=== PATIENT | female | born 1995 | race Caucasian/White ===

== ENCOUNTER 2017-12-10 12:27 | Inpatient (IN) | payer MEDICAID, OTHER ==
[2017-12-10] MEDS ORDERED: Lidocaine 1% 50 ML MDV INJECT PRN (13:56)
[2017-12-10] MEDS ORDERED: Tranexamic Acid 1,000 MG in Sodium Chloride 0.9% 100 ML IV PRN (13:56)
[2017-12-10] MEDS ORDERED: Butorphanol 1 MG/ML SDV IVPUSH PRN (13:56)
[2017-12-10] MEDS ORDERED: Nalbuphine 10 MG/1 ML Vial IVPUSH PRN (13:56)
[2017-12-10] MEDS ORDERED: Water For Irrigation,Sterile 1,000 ML Container IRR PRN (13:56)
[2017-12-10] MEDS ORDERED: Misoprostol 200 MCG Tab PO PRN (13:56)
[2017-12-10] MEDS ORDERED: Sodium Chloride 0.9% 10 ML Syringe FLUSH PRN (13:56)
[2017-12-10] MEDS ORDERED: Carboprost Tromethamine 250 MCG/1 ML Amp IM PRN (13:56)
[2017-12-10] MEDS ORDERED: Methylergonovine 0.2 MG/1 ML Amp IM PRN (13:56)
[2017-12-10] MEDS ORDERED: Ampicillin 2 GM in Sodium Chloride 0.9% 100 ML IV ONE (13:56)
[2017-12-10] MEDS ORDERED: Sodium Chloride 0.9% 2.5 ML Syringe FLUSH PRN (13:56)
[2017-12-10] MEDS ORDERED: Oxytocin/0.9 % Sodium Chloride 30 UNIT/500 ML BAG IV SCH (14:00)
[2017-12-10] MEDS: Lactated Ringers 1,000 ML IV SCH ×3 (14:25→21:32)
--- NOTE | 2017-12-10 16:05 | PCM.LDHP ---
L&D History of Present Illness - General Date of Service: 12/10/17 Admit Problem/Dx: Patient Status Order with Admit Dx/Problem 12/10/17 13:01 Patient Status [ADT] Routine 12/10/17 13:56 Patient Status [ADT] Routine Admission Diagnosis/Problem Admission Diagnosis/Problem Source of Information: Patient History Limitations: Reports: No Limitations - History of Present Illness Improves with: Reports: None Worsens with: Reports: None Associated Symptoms: Reports: N - Related Data Allergies/Adverse Reactions: Allergies Allergy/AdvReac Type Severity Reaction Status Date / Time No Known Allergies Allergy Verified 12/10/17 13:00 H&P Review of Systems - Review of Systems: Review Of Systems: See Below General: Reports: No Symptoms HEENT: Reports: No Symptoms Pulmonary: Reports: No Symptoms Cardiovascular: Reports: No Symptoms Gastrointestinal: Reports: No Symptoms Genitourinary: Reports: No Symptoms Musculoskeletal: Reports: No Symptoms Skin: Reports: No Symptoms Psychiatric: Reports: No Symptoms Neurological: Reports: No Symptoms Hematologic/Lymphatic: Reports: No Symptoms Immunologic: Reports: No Symptoms L&D Exam - Exam Exam: See Below - Vital Signs Weight: 83.915 kg - OB Specific Fundal Height In cm: 37 Contraction Intensity: Mild to Moderate Movement: Active Heart Tones: Present Presentation: Vertex - Riojas Score Riojas Score Cervix Position: Posterior Riojas Score Consistency: Medium Riojas Score Effacement: 51-70% Riojas Score Dilation: 1-2 cm Riojas Score 's Station: -3 Riojas Score Total: 4 - Exam General: Alert, Oriented HEENT: PERRLA, Conjunctiva Clear, EACs Clear, EOMI, Hearing Intact, Mucosa Moist & [place], Nares Patent, Normal Nasal Septum, Posterior Pharynx Clear, TMs Clear Neck: Supple, Trachea Midline Lungs: Clear to Auscultation, Normal Respiratory Effort Cardiovascular: Regular Rate, Regular Rhythm GI/Abdominal Exam: Normal Bowel Sounds, Soft, Non-Tender, No Organomegaly, No Distention, No Abnormal Bruit, No Mass, Pelvis Stable Rectal Exam: Normal Exam, Normal Rectal Tone Genitourinary: Normal external exam, Normal bimanual exam, Normal speculum exam Back Exam: Normal Inspection, Full Range of Motion Extremities: Normal Inspection, Normal Range of Motion, Non-Tender, No Pedal Edema, Normal Capillary Refill Skin: Warm, Dry, Intact Neurological: Cranial Nerves Intact, Reflexes Equal Bilateral Psychiatric: Alert, Normal Affect, Normal Mood - Patient Data Lab Results Last 24 hrs: Laboratory Results - last 24 hr 12/10/17 12/10/17 12/10/17 Range/Units 12:50 14:15 14:15 WBC 10.61 (4.0-11.0) K/uL RBC 4.39 (4.30-5.90) M/uL Hgb 11.8 L (12.0-16.0) g/dL Hct 34.4 L (36.0-46.0) % MCV 78.4 L (80.0-98.0) fL MCH 26.9 L (27.0-32.0) pg MCHC 34.3 (31.0-37.0) g/dL RDW Std Deviation 43.6 (28.0-62.0) fl RDW Coeff of Bria 15 (11.0-15.0) % Plt Count 159 (150-400) K/uL MPV 11.60 (7.40-12.00) fL Nucleated RBC % 0.0 /100WBC Nucleated RBCs # 0 K/uL Membrane Rupture POSITIVE Blood Type O NEGATIVE Antibody Screen NEGATIVE Result Diagrams: 12/10/17 14:15 Problem List Initiated/Reviewed/Updated: Yes Orders Last 24hrs: Active Orders 24 hr Category Date Time Status Patient Status [ADT] Routine ADT 12/10/17 13:56 Active Heart Tones [RC] CONTINUOUS Care 12/10/17 13:56 Active Non Stress Test [RC] PER UNIT ROUTINE Care 12/10/17 13:01 Active Non Stress Test [RC] PER UNIT ROUTINE Care 12/10/17 13:56 Active May Shower [RC] ASDIRECTED Care 12/10/17 13:56 Active Notify Provider [RC] PRN Care 12/10/17 13:56 Active Up ad Lesia [RC] ASDIRECTED Care 12/10/17 13:01 Active Up ad Lesia [RC] ASDIRECTED Care 12/10/17 13:56 Active Vaginal Exam [RC] Click to Edit Care 12/10/17 13:01 Active Vaginal Exam [RC] PRN Care 12/10/17 13:56 Active Vital Signs [RC] PER UNIT ROUTINE Care 12/10/17 13:01 Active Vital Signs [RC] PER UNIT ROUTINE Care 12/10/17 13:56 Active Ampicillin 1 gm Med 12/10/17 18:30 Active Sodium Chloride 0.9% [Normal Saline] 50 ml IV Q4H Butorphanol [Stadol] Med 12/10/17 13:56 Active 1 mg IVPUSH Q1H PRN Carboprost Tromethamine [Hemabate DS] Med 12/10/17 13:56 Active 250 mcg IM ASDIRECTED PRN Lactated Ringers [Ringers, Lactated] 1,000 ml Med 12/10/17 14:00 Active IV ASDIRECTED Lidocaine 1% [Xylocaine 1%] Med 12/10/17 13:56 Active 50 ml INJECT ONETIME PRN Methylergonovine [Methergine] Med 12/10/17 13:56 Active 0.2 mg IM ASDIRECTED PRN Nalbuphine [Nubain] Med 12/10/17 13:56 Active 10 mg IVPUSH Q1H PRN Oxytocin/0.9 % Sodium Chloride [Oxytocin 30 Unit/500 ML Med 12/10/17 14:00 Active -NS] 30 unit in 500 ml IV TITRATE Sodium Chloride 0.9% [Saline Flush] Med 12/10/17 13:56 Active 10 ml FLUSH ASDIRECTED PRN Sodium Chloride 0.9% [Saline Flush] Med 12/10/17 13:56 Active 2.5 ml FLUSH ASDIRECTED PRN Tranexamic Acid [Cyklokapron] 1,000 mg Med 12/10/17 13:56 Active Sodium Chloride 0.9% [Normal Saline] 100 ml IV ONETIME Water For Irrigation,Sterile [Sterile Water for Med 12/10/17 13:56 Active Irrigation] 1,000 ml IRR ASDIRECTED PRN miSOPROStol [Cytotec] Med 12/10/17 13:56 Active 200 mcg PO ONETIME PRN Scalp Electrode [WOMSER] Per Unit Routine Oth 12/10/17 13:56 Ordered Peripheral IV Insertion Adult [OM.PC] Routine Oth 12/10/17 13:56 Ordered Resuscitation Status Routine Resus Stat 12/10/17 13:01 Ordered Medication Orders Butorphanol Tartrate (Stadol) 1 mg IVPUSH Q1H PRN PRN Reason: Pain Carboprost Tromethamine (Hemabate Ds) 250 mcg IM ASDIRECTED PRN PRN Reason: Post Hemorrhage Tranexamic Acid 1,000 mg/ (Sodium Chloride) 110 mls @ 660 mls/hr IV ONETIME PRN PRN Reason: Bleeding Lactated Ringer's (Ringers, Lactated) 1,000 mls @ 150 mls/hr IV ASDIRECTED [facility] Last Admin: 12/10/17 14:25 Dose: 150 mls/hr Oxytocin/Sodium Chloride (Oxytocin 30 Unit/500 Ml-Ns) 30 unit in 500 mls @ 500 mls/hr IV TITRATE [facility] Ampicillin Sodium 1 gm/ Sodium (Chloride) 50 mls @ 100 mls/hr IV Q4H [facility] Lidocaine HCl (Xylocaine 1%) 50 ml INJECT ONETIME PRN PRN Reason: Laceration repair Methylergonovine Maleate (Methergine) 0.2 mg IM ASDIRECTED PRN PRN Reason: Post Hemorrhage Misoprostol (Cytotec) 200 mcg PO ONETIME PRN PRN Reason: Post Hemorrhage Nalbuphine HCl (Nubain) 10 mg IVPUSH Q1H PRN PRN Reason: Pain (severe 7-10) Sodium Chloride (Saline Flush) 10 ml FLUSH ASDIRECTED PRN PRN Reason: Keep Vein Open Sodium Chloride (Saline Flush) 2.5 ml FLUSH ASDIRECTED PRN PRN Reason: Keep Vein Open Sterile Water (Sterile Water For Irrigation) 1,000 ml IRR ASDIRECTED PRN PRN Reason: delivery Assessment/Plan Comment:: This patient according to have last menstrual cycle had EDC is January 04, 2018 no other than January 14, 2018 which is listed in her OB record which is based on a late ultrasound the patient have at that late second trimester she started her care late. Her fundal height consistent with the fact that the patient is 3637 weeks she have spontaneous rupture of the membrane that was confirmed. I am planning to admit her to the hospitalist start her on antibiotic since had 2 previous status is unknown do expectant management. Later on we may need to start the patient on Pitocin for augmentation. She can have epidural anesthesia: It is needed and appropriate. I discussed this case with Dr. Ortega with the head host/hostess electronic design engineer.
[2017-12-10] MEDS: Ampicillin 1 GM in Sodium Chloride 0.9% 50 ML IV SCH ×2 (18:16→22:21)
--- NOTE | 2017-12-10 21:28 | PCM.PREANE ---
Preanesthetic Assessment - Anesthesia/Transfusion/Family Hx Anesthesia History: No Prior Anesthesia Family History of Anesthesia Reaction: No - Review of Systems General: No Symptoms Pulmonary: No Symptoms Cardiovascular: No Symptoms Gastrointestinal: No Symptoms Neurological: No Symptoms Other: Reports: None (Denies any personal or family hx of bleeding or clotting problems) - Physical Assessment Height: 1.68 m Weight: 83.915 kg ASA Class: 2 Mental Status: Alert & Oriented x3 Airway Class: Mallampati = 2 Dentition: Reports: Normal Dentition ROM/Head Extension: Full - Lab Values: Laboratory Last Values WBC 10.61 K/uL (4.0-11.0) 12/10/17 14:15 RBC 4.39 M/uL (4.30-5.90) 12/10/17 14:15 Hgb 11.8 g/dL (12.0-16.0) L 12/10/17 14:15 Hct 34.4 % (36.0-46.0) L 12/10/17 14:15 MCV 78.4 fL (80.0-98.0) L 12/10/17 14:15 MCH 26.9 pg (27.0-32.0) L 12/10/17 14:15 MCHC 34.3 g/dL (31.0-37.0) 12/10/17 14:15 RDW Std Deviation 43.6 fl (28.0-62.0) 12/10/17 14:15 RDW Coeff of Bria 15 % (11.0-15.0) 12/10/17 14:15 Plt Count 159 K/uL (150-400) 12/10/17 14:15 MPV 11.60 fL (7.40-12.00) 12/10/17 14:15 Nucleated RBC % 0.0 /100WBC 12/10/17 14:15 Nucleated RBCs # 0 K/uL 12/10/17 14:15 Membrane Rupture POSITIVE 12/10/17 12:50 Blood Type O NEGATIVE 12/10/17 14:15 Antibody Screen NEGATIVE 12/10/17 14:15 - Allergies Allergies/Adverse Reactions: Allergies Allergy/AdvReac Type Severity Reaction Status Date / Time No Known Allergies Allergy Verified 12/10/17 13:00 - Acknowledgements Anesthesia Type Planned: Epidural Pt an Appropriate Candidate for the Planned Anesthesia: Yes Alternatives and Risks of Anesthesia Discussed w Pt/Guardian: Yes Pt/Guardian Understands and Agrees with Anesthesia Plan: Yes Additional Comments: States does not have any questions or concerns after reading anesthesia consent form and risks explained PreAnesthesia Questionnaire - Past Health History Medical/Surgical History: Denies 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: - CURRENT (IN HOUSE) MEDS Current Meds: Current Medications Butorphanol Tartrate (Stadol) 1 mg IVPUSH Q1H PRN PRN Reason: Pain Carboprost Tromethamine (Hemabate Ds) 250 mcg IM ASDIRECTED PRN PRN Reason: Post Hemorrhage Tranexamic Acid 1,000 mg/ (Sodium Chloride) 110 mls @ 660 mls/hr IV ONETIME PRN PRN Reason: Bleeding Lactated Ringer's (Ringers, Lactated) 1,000 mls @ 150 mls/hr IV ASDIRECTED [facility] Last Admin: 12/10/17 20:25 Dose: 150 mls/hr Oxytocin/Sodium Chloride (Oxytocin 30 Unit/500 Ml-Ns) 30 unit in 500 mls @ 500 mls/hr IV TITRATE [facility] Ampicillin Sodium 1 gm/ Sodium (Chloride) 50 mls @ 100 mls/hr IV Q4H [facility] Last Admin: 12/10/17 18:16 Dose: 100 mls/hr Lidocaine HCl (Xylocaine 1%) 50 ml INJECT ONETIME PRN PRN Reason: Laceration repair Methylergonovine Maleate (Methergine) 0.2 mg IM ASDIRECTED PRN PRN Reason: Post Hemorrhage Misoprostol (Cytotec) 200 mcg PO ONETIME PRN PRN Reason: Post Hemorrhage Nalbuphine HCl (Nubain) 10 mg IVPUSH Q1H PRN PRN Reason: Pain (severe 7-10) Sodium Chloride (Saline Flush) 10 ml FLUSH ASDIRECTED PRN PRN Reason: Keep Vein Open Sodium Chloride (Saline Flush) 2.5 ml FLUSH ASDIRECTED PRN PRN Reason: Keep Vein Open Sterile Water (Sterile Water For Irrigation) 1,000 ml IRR ASDIRECTED PRN PRN Reason: delivery Discontinued Medications Ampicillin Sodium 2 gm/ Sodium (Chloride) 100 mls @ 200 mls/hr IV ONETIME ONE Stop: 12/10/17 14:25 Last Admin: 12/10/17 14:28 Dose: 200 mls/hr Fentanyl/Bupivacaine HCl (Xeekptes-Ohzwa-Ng 2 Mcg/Ml-0.125%) Confirm Administered Dose 100 mls @ as directed [facility] Stop: 12/10/17 20:49
[2017-12-11] MEDS: Ampicillin 1 GM in Sodium Chloride 0.9% 50 ML IV SCH ×3 (02:12→10:52)
[2017-12-11] MEDS: Lactated Ringers 1,000 ML IV SCH (05:54)
[2017-12-11] MEDS ORDERED: Oxytocin/0.9 % Sodium Chloride 30 UNIT/500 ML BAG IV SCH (07:45)
[2017-12-11] MEDS ORDERED: Lanolin 100% Cream 7 GM Tube TOP PRN (09:34)
[2017-12-11] MEDS ORDERED: Acetaminophen 500 MG Tab PO PRN (09:34)
[2017-12-11] MEDS ORDERED: Bisacodyl 10 MG Supp RECTAL PRN (09:34)
[2017-12-11] MEDS ORDERED: Benzocaine/Menthol 20%-0.5% Spray 78 GM Cannister TOP PRN (09:34)
[2017-12-11] MEDS ORDERED: oxyCODONE 5 MG Tab PO PRN (09:34)
[2017-12-11] MEDS ORDERED: Ibuprofen 400 MG Tab PO PRN (09:34)
[2017-12-11] MEDS ORDERED: Docusate Sodium 100 MG Cap PO PRN (09:34)
[2017-12-11] MEDS ORDERED: Witch Hazel Medicated Pads 40/Jar TOP PRN (09:34)
--- NOTE | 2017-12-11 11:44 | OR ---
SURGEON: Riki Butler MD DATE OF PROCEDURE: 12/11/2017 Ms. Roberto is 36 plus 4 according to her last menstrual cycle. She is admitted to Labor and Delivery with a spontaneous rupture of the membrane and in early labor. At the time of admission, she was 3 cm vertex and she was -2. Her GBS status was unknown, so we started her on antibiotic according to the protocol. The patient contracted spontaneously. She progressed to 5, complete vertex, 0 station. Then, she had epidural anesthesia for labor analgesia. The patient continued to progress. At 4:30 this morning, she was complete-complete vertex, +1 station, and she started pushing. The patient was rather exhausted; however, she pushed in excess of two and half hours. I gave her some Pitocin to start augment her contraction and to help facilitate bring the baby down, but the patient was unable to push the baby out. She was consulted and I suggested a vacuum extraction for her. I explained the vacuum extraction for her in detail. The patient was consented for that, and at the time of me examining the patient get her ready for the vacuum extraction, she was complete-complete vertex, +2, with the head in LOUIS position. I applied the Kiwi vacuum without any problem, and with the patient pushing, I was able to rotate the head from LOUIS to OA and accomplished the vaginal delivery without any problem. The fetus cried immediately. scores reported to be 8 and 9. The placenta delivered spontaneous, complete, and intact without any problem. There was no vaginal or perineal tear and episiotomy was not needed for this delivery. Estimated blood loss was 350 mL. The heart rate was category I through the entire process of labor and there was no complication in the labor or the delivery. ADALID / MJ /[id number]
[2017-12-11] MEDS: Ibuprofen 800 MG Tab PO PRN (18:03)
[2017-12-11] MEDS: Acetaminophen 500 MG Tab PO PRN (22:35)
--- NOTE | 2017-12-12 08:55 | PCM48HPAN ---
Post Anesthesia Note - EVALUATION WITHIN 48HRS OF ANESTHETIC Vital Signs in Normal Range: Yes Patient Participated in Evaluation: Yes Respiratory Function Stable: Yes Airway Patent: Yes Cardiovascular Function Stable: Yes Hydration Status Stable: Yes Pain Control Satisfactory: Yes Nausea and Vomiting Control Satisfactory: Yes Mental Status Recovered: Yes Resp Rate: 18 - COMMENTS/OBSERVATIONS Free Text/Narrative:: Denies any complaints or headache
--- NOTE | 2017-12-12 09:45 | PCM.PNPP ---
- General Info Date of Service: 12/12/17 Functional Status: Reports: Pain Controlled - Review of Systems General: Reports: No Symptoms HEENT: Reports: No Symptoms Pulmonary: Reports: No Symptoms Cardiovascular: Reports: No Symptoms Gastrointestinal: Reports: No Symptoms Genitourinary: Reports: No Symptoms Musculoskeletal: Reports: No Symptoms Skin: Reports: No Symptoms Neurological: Reports: No Symptoms Psychiatric: Reports: No Symptoms - General Info Date of Service: 12/12/17 - Patient Data Vital Signs - Most Recent: Last Vital Signs Temp 36.3 C 12/12/17 07:30 Pulse 100 12/12/17 07:30 Resp 18 12/12/17 08:54 BP 117/68 12/12/17 07:30 Pulse Ox 97 12/12/17 07:30 Weight - Most Recent: 83.915 kg I&O - Last 24 Hours: Intake & Output 12/11/17 12/12/17 12/12/17 22:59 06:59 14:59 Intake Total 2 Balance 2 Lab Results - Last 24 Hours: Laboratory Results - last 24 hr 12/11/17 12/12/17 Range/Units 10:00 05:50 Hgb 8.7 L (12.0-16.0) g/dL Hct 25.9 L (36.0-46.0) % Screen NEGATIVE (NEGATIVE) RhIG Candidate? YES Rhogam Indicated YES, BABY RH POS H Med Orders - Current: Current Medications Acetaminophen (Tylenol Extra Strength) 500 mg PO Q4H PRN PRN Reason: Pain Acetaminophen (Tylenol Extra Strength) 1,000 mg PO Q4H PRN PRN Reason: Pain Last Admin: 12/11/17 22:35 Dose: 1,000 mg Benzocaine/Menthol (Dermoplast Pain Relief 20%-0.5% [place]) 78 gm TOP ASDIRECTED PRN PRN Reason: Perineal Comfort Measure Last Admin: 12/11/17 10:03 Dose: 1 canister Bisacodyl (Dulcolax) 10 mg RECTAL ONETIME PRN PRN Reason: Constipation Butorphanol Tartrate (Stadol) 1 mg IVPUSH Q1H PRN PRN Reason: Pain Carboprost Tromethamine (Hemabate Ds) 250 mcg IM ASDIRECTED PRN PRN Reason: Post Hemorrhage Docusate Sodium (Colace) 100 mg PO BID PRN PRN Reason: Constipation Emollient Ointment (Lansinoh Hpa) 0 gm TOP ASDIRECTED PRN PRN Reason: Sore Nipples Tranexamic Acid 1,000 mg/ (Sodium Chloride) 110 mls @ 660 mls/hr IV ONETIME PRN PRN Reason: Bleeding Lactated Ringer's (Ringers, Lactated) 1,000 mls @ 150 mls/hr IV ASDIRECTED [facility] Last Admin: 12/11/17 05:54 Dose: 150 mls/hr Oxytocin/Sodium Chloride (Oxytocin 30 Unit/500 Ml-Ns) 30 unit in 500 mls @ 500 mls/hr IV TITRATE [facility] Oxytocin/Sodium Chloride (Oxytocin 30 Unit/500 Ml-Ns) 30 unit in 500 mls @ 2 mls/hr IV TITRATE [facility]; Protocol Last Infusion: 12/11/17 08:57 Dose: 999 munits/min, 999 mls/hr Ibuprofen (Motrin) 400 mg PO Q4H PRN PRN Reason: Pain Ibuprofen (Motrin) 800 mg PO Q6H PRN PRN Reason: Pain Last Admin: 12/11/17 18:03 Dose: 800 mg Lidocaine HCl (Xylocaine 1%) 50 ml INJECT ONETIME PRN PRN Reason: Laceration repair Methylergonovine Maleate (Methergine) 0.2 mg IM ASDIRECTED PRN PRN Reason: Post Hemorrhage Misoprostol (Cytotec) 200 mcg PO ONETIME PRN PRN Reason: Post Hemorrhage Nalbuphine HCl (Nubain) 10 mg IVPUSH Q1H PRN PRN Reason: Pain (severe 7-10) Oxycodone HCl (Oxycodone) 5 mg PO Q2H PRN PRN Reason: Pain Sodium Chloride (Saline Flush) 10 ml FLUSH ASDIRECTED PRN PRN Reason: Keep Vein Open Sodium Chloride (Saline Flush) 2.5 ml FLUSH ASDIRECTED PRN PRN Reason: Keep Vein Open Sterile Water (Sterile Water For Irrigation) 1,000 ml IRR ASDIRECTED PRN PRN Reason: delivery Witch Judith (Tucks) 1 pad TOP ASDIRECTED PRN PRN Reason: comfort care Last Admin: 12/11/17 10:03 Dose: 1 tub Discontinued Medications Ampicillin Sodium 2 gm/ Sodium (Chloride) 100 mls @ 200 mls/hr IV ONETIME ONE Stop: 12/10/17 14:25 Last Admin: 12/10/17 14:28 Dose: 200 mls/hr Ampicillin Sodium 1 gm/ Sodium (Chloride) 50 mls @ 100 mls/hr IV Q4H [facility] Last Admin: 12/11/17 10:52 Dose: Not Given Fentanyl/Bupivacaine HCl (Kcyakzzo-Juumw-Xw 2 Mcg/Ml-0.125%) Confirm Administered Dose 100 mls @ as directed EP .STK-MED ONE Stop: 12/10/17 20:49 Last Admin: 12/11/17 00:53 Dose: Not Given Fentanyl/Bupivacaine HCl (Dynhslci-Mxgzc-Dr 2 Mcg/Ml-0.125%) Confirm Administered Dose 100 mls @ as directed EP .STK-MED ONE Stop: 12/11/17 07:54 - Interaction Infant Disposition, : in Room with Family Interaction: Holding Infant Support Person: Mother, Significant Other - Recovery Exam Fundal Tone: Firm Fundal Level: At Umbilicus Fundal Placement: Midline Lochia Amount: Scant Lochia Color: Rubra/Red Perineum Description: Intact, Minimal Bruising/Swelling, Edematous Episiotomy/Laceration: None Bladder Status: Voiding Urinary Elimination: Voided - Exam General: Alert, Oriented HEENT: Pupils Equal Neck: Supple Lungs: Clear to Auscultation, Normal Respiratory Effort Cardiovascular: Regular Rate, Regular Rhythm GI/Abdominal Exam: Normal Bowel Sounds, Soft, Non-Tender, No Organomegaly, No Distention, No Abnormal Bruit, No Mass, Pelvis Stable Extremities: Normal Inspection, Normal Range of Motion, Non-Tender, No Pedal Edema, Normal Capillary Refill Skin: Warm, Dry, Intact Wound/Incisions: Healing Well Neurological: No New Focal Deficit Psy/Mental Status: Alert, Normal Affect, Normal Mood - Problem List Review Problem List Initiated/Reviewed/Updated: Yes - My Orders Last 24 Hours: My Active Orders 12/11/17 09:34 Acetaminophen [Tylenol Extra Strength] 1,000 mg PO Q4H PRN Acetaminophen [Tylenol Extra Strength] 500 mg PO Q4H PRN Benzocaine/Menthol [Dermoplast Pain Relief 20%-0.5% [place]] 78 gm TOP ASDIRECTED PRN Bisacodyl [Dulcolax] 10 mg RECTAL ONETIME PRN Docusate Sodium [Colace] 100 mg PO BID PRN Ibuprofen [Motrin] 400 mg PO Q4H PRN Ibuprofen [Motrin] 800 mg PO Q6H PRN Lanolin [Lansinoh HPA] See Dose Instructions TOP ASDIRECTED PRN Wm Wong [Tucks] 1 pad TOP ASDIRECTED PRN oxyCODONE 5 mg PO Q2H PRN 12/11/17 09:35 Patient Status [ADT] Routine May Shower [RC] ASDIRECTED Up ad Lesia [RC] ASDIRECTED Vital Signs [RC] PER UNIT ROUTINE Assess Lochia [WOMSER] Per Unit Routine Assess Uterine Involution [WOMSER] Per Unit Routine Peripheral IV Discontinue [OM.PC] Routine 12/11/17 Lunch Regular Diet [DIET] - Plan Plan:: This patient according to have last menstrual cycle had EDC is January 04, 2018 no other than January 14, 2018 which is listed in her OB record which is based on a late ultrasound the patient have at that late second trimester she started her care late. Her fundal height consistent with the fact that the patient is 3637 weeks she have spontaneous rupture of the membrane that was confirmed. I am planning to admit her to the hospitalist start her on antibiotic since had 2 previous status is unknown do expectant management. Later on we may need to start the patient on Pitocin for augmentation. She can have epidural anesthesia: It is needed and appropriate. I discussed this case with Dr. Ortega with the furniture removalist's assistant blender conveyor operator.
[2017-12-12] MEDS: Ibuprofen 800 MG Tab PO PRN (13:28)
[2017-12-13] MEDS: Acetaminophen 500 MG Tab PO PRN (04:47)
== END 2017-12-13 11:00 | disposition home or self-care (01) | DRG 775 ==
LOC: MW.OBCHECK 12:27 → MW.OB 13:56 → OBSVTOIN 12-11 08:57 → MW.OB 12-11 11:00
PROVIDERS: ADMIT Obstetrics & Gynecology; ATTEND Obstetrics & Gynecology
PROC: 10D07Z6 Extraction of Products of Conception, Vacuum, Via Natural or Artificial Opening (ICD-10-PCS; principal; 2017-12-11)
PROC: 00HU33Z Insertion of Infusion Device into Spinal Canal, Percutaneous Approach (ICD-10-PCS; 2017-12-11)
PROC: 00HU33Z Insertion of Infusion Device into Spinal Canal, Percutaneous Approach (ICD-10-PCS; 2017-12-11)
DX: O42.013 Preterm premature rupture of membranes, onset of labor within 24 hours of rupture, third trimester (principal); Z3A.36 36 weeks gestation of pregnancy; Z37.0 Single live birth
CPT/HCPCS: 36415; 51702; 59025; 59409; 84112; 85014; 85018; 85027; 85460; 86850; 86900; 86901; A9270-GY; J0290; J2590; J2792; J7030; J7050; J7120

== ENCOUNTER 2018-09-03 15:52 | Emergency (ER) | payer SELFPAY ==
--- NOTE | 2018-09-03 15:55 | EDM.PDOC ---
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 She reports she had an IUD placed approximately 4-5 weeks ago in [place]. She reports since having the IUD placed she has had some intermittent vaginal bleeding, worse over the last few days. She is concerned that she is and is having a miscarriage. She has not taken any home tests. She was informed by her provider that she was not prior to the IUD being placed. She has some mild nausea without vomiting. Patient denies any fever, chills, headache, change in vision, syncope or near syncope. Denies any chest pain, back pain, shortness of breath or cough. Denies any diarrhea, constipation or dysuria. Has not noted any blood in urine or stool. Patient has been eating and drinking appropriately. Review of systems: As per history of present illness and below otherwise all systems reviewed and negative. Past medical history: As per history of present illness and as reviewed below otherwise noncontributory. Surgical history: As per history of present illness and as reviewed below otherwise noncontributory. Social history: See social history for further information Family history: As per history of present illness and as reviewed below otherwise noncontributory. Physical exam: General: Well-developed and well-nourished 23-year-old female. Alert and oriented. Nontoxic appearing and in no acute distress. HEENT: Atraumatic, normocephalic, pupils equal and reactive bilaterally, negative for conjunctival pallor or scleral icterus, mucous membranes moist, TMs normal bilaterally, throat clear, neck supple, nontender, trachea midline. No drooling or trismus noted. No meningeal signs. No hot potato voice noted. Lungs: Clear to auscultation, breath sounds equal bilaterally, chest nontender. Heart: S1S2, regular rate and rhythm without overt murmur Abdomen: Soft, nondistended, nontender. Negative for masses or hepatosplenomegaly. Negative for costovertebral tenderness. Pelvis: Stable nontender. Genitourinary: Deferred. Rectal: Deferred. Skin: Intact, warm, dry. No lesions or rashes noted. Extremities: Atraumatic, moves all extremities per self without difficulty or deficits, negative for cords or calf pain. Neurovascular unremarkable. Neuro: Awake, alert, oriented. Cranial nerves II through XII unremarkable. Cerebellum unremarkable. Motor and sensory unremarkable throughout. Exam nonfocal. Notes: Lab work is unremarkable. Her vital signs are stable and have been reviewed by me. Supportive care measures were reviewed and discussed. Voices understanding and is agreeable to plan of care. Denies any further questions or concerns at this time. Diagnostics: CBC, CMP, UA, HCGU Therapeutics: None Prescription: None Impression: Encounter for medical screening Irregular menses Plan: 1. Labs were normal today. You are not 2. Cycles may be irregular for the first several months. 3. Tylenol and or ibuprofen as needed for pain management. 4. Follow-up with your primary care provider or OBGYN as we discussed. Return to the ED as needed and as discussed. Definitive disposition and diagnosis as appropriate pending reevaluation and review of above. Pelvic Pain Score (Numeric/FACES): 8 - Related Data Allergies Allergy/AdvReac Type Severity Reaction Status Date / Time No Known Allergies Allergy Verified 09/03/18 16:21 Home Meds: Home Meds . 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 ED EXAM - Physical Exam Exam: See Below (See dictation) Course - Vital Signs Last Recorded V/S: Last Vital Signs Temp 97.6 F 09/03/18 16:18 Pulse 90 09/03/18 16:18 Resp 18 09/03/18 16:18 BP 116/79 09/03/18 16:18 Pulse Ox 97 09/03/18 16:18 - Orders/Labs/Meds Labs: Laboratory Tests 09/03/18 09/03/18 09/03/18 Range/Units 16:17 16:17 16:29 WBC 9.70 (4.0-11.0) K/uL RBC 5.30 (4.30-5.90) M/uL Hgb 12.4 (12.0-16.0) g/dL Hct 37.7 (36.0-46.0) % MCV 71.1 L (80.0-98.0) fL MCH 23.4 L (27.0-32.0) pg MCHC 32.9 (31.0-37.0) g/dL RDW Std Deviation 43.7 (28.0-62.0) fl RDW Coeff of Bria 17 H (11.0-15.0) % Plt Count 284 (150-400) K/uL MPV 10.60 (7.40-12.00) fL Neut % (Auto) 64.3 (48.0-80.0) % Lymph % (Auto) 28.2 (16.0-40.0) % Ellis % (Auto) 5.3 (0.0-15.0) % Eos % (Auto) 1.2 (0.0-7.0) % Baso % (Auto) 1.0 (0.0-1.5) % Neut # (Auto) 6.2 H (1.4-5.7) K/uL Lymph # (Auto) 2.7 H (0.6-2.4) K/uL Ellis # (Auto) 0.5 (0.0-0.8) K/uL Eos # (Auto) 0.1 (0.0-0.7) K/uL Baso # (Auto) 0.1 (0.0-0.1) K/uL Nucleated RBC % 0.0 /100WBC Nucleated RBCs # 0 K/uL Sodium (136-145) mmol/L Potassium (3.5-5.1) mmol/L Chloride (98-107) mmol/L Carbon Dioxide (21.0-32.0) mmol/L BUN (7.0-18.0) mg/dL Creatinine (0.6-1.0) mg/dL Est Cr Clr Drug Dosing mL/min Estimated GFR (MDRD) ml/min Glucose (74-106) mg/dL Calcium (8.5-10.1) mg/dL Urine Color YELLOW Urine Appearance CLEAR Urine pH 6.0 (5.0-8.0) Ur Specific Outlook >= 1.030 (1.001-1.035) Urine Protein NEGATIVE (NEGATIVE) mg/dL Urine Glucose (UA) NEGATIVE (NEGATIVE) mg/dL Urine Ketones NEGATIVE (NEGATIVE) mg/dL Urine Occult Blood SMALL H (NEGATIVE) Urine Nitrite NEGATIVE (NEGATIVE) Urine Bilirubin NEGATIVE (NEGATIVE) Urine Urobilinogen 0.2 (<2.0) EU/dL Ur Leukocyte Esterase NEGATIVE (NEGATIVE) Urine RBC 0-1 (0-2/HPF) Urine WBC 0-3 (0-5/HPF) Ur Epithelial Cells FEW (NONE-FEW) Urine Bacteria FEW (NEGATIVE) Urine HCG, Qual NEGATIVE (NEGATIVE) 09/03/18 Range/Units 16:29 WBC (4.0-11.0) K/uL RBC (4.30-5.90) M/uL Hgb (12.0-16.0) g/dL Hct (36.0-46.0) % MCV (80.0-98.0) fL MCH (27.0-32.0) pg MCHC (31.0-37.0) g/dL RDW Std Deviation (28.0-62.0) fl RDW Coeff of Bria (11.0-15.0) % Plt Count (150-400) K/uL MPV (7.40-12.00) fL Neut % (Auto) (48.0-80.0) % Lymph % (Auto) (16.0-40.0) % Ellis % (Auto) (0.0-15.0) % Eos % (Auto) (0.0-7.0) % Baso % (Auto) (0.0-1.5) % Neut # (Auto) (1.4-5.7) K/uL Lymph # (Auto) (0.6-2.4) K/uL Ellis # (Auto) (0.0-0.8) K/uL Eos # (Auto) (0.0-0.7) K/uL Baso # (Auto) (0.0-0.1) K/uL Nucleated RBC % /100WBC Nucleated RBCs # K/uL Sodium 135 L (136-145) mmol/L Potassium 4.2 (3.5-5.1) mmol/L Chloride 100 (98-107) mmol/L Carbon Dioxide 27.6 (21.0-32.0) mmol/L BUN 13 (7.0-18.0) mg/dL Creatinine 0.7 (0.6-1.0) mg/dL Est Cr Clr Drug Dosing 118.01 mL/min Estimated GFR (MDRD) > 60.0 ml/min Glucose 90 (74-106) mg/dL Calcium 8.9 (8.5-10.1) mg/dL Urine Color Urine Appearance Urine pH (5.0-8.0) Ur Specific Outlook (1.001-1.035) Urine Protein (NEGATIVE) mg/dL Urine Glucose (UA) (NEGATIVE) mg/dL Urine Ketones (NEGATIVE) mg/dL Urine Occult Blood (NEGATIVE) Urine Nitrite (NEGATIVE) Urine Bilirubin (NEGATIVE) Urine Urobilinogen (<2.0) EU/dL Ur Leukocyte Esterase (NEGATIVE) Urine RBC (0-2/HPF) Urine WBC (0-5/HPF) Ur Epithelial Cells (NONE-FEW) Urine Bacteria (NEGATIVE) Urine HCG, Qual (NEGATIVE) Departure - Departure Time of Disposition: 17:06 Disposition: Home, Self-Care 01 Clinical Impression: Irregular menses, Encounter for medical screening examination - Discharge Information Instructions: Metrorrhagia, [id number] Referrals: PCP,None [Primary Care Provider] - Forms: ED Department Discharge Additional Instructions: The following information is given to patients seen in the emergency department who are being discharged to home. This information is to outline your options for follow-up care. We provide all patients seen in our emergency department with a follow-up referral. The need for follow-up, as well as the timing and circumstances, are variable depending upon the specifics of your emergency department visit. If you don't have a primary care physician on staff, we will provide you with a referral. We always advise you to contact your personal physician following an emergency department visit to inform them of the circumstance of the visit and for follow-up with them and/or the need for any referrals to a consulting specialist. The emergency department will also refer you to a specialist when appropriate. This referral assures that you have the opportunity for follow-up care with a specialist. All of these measure are taken in an effort to provide you with optimal care, which includes your follow-up. Under all circumstances we always encourage you to contact your private physician who remains a resource for coordinating your care. When calling for follow-up care, please make the office aware that this follow-up is from your recent emergency room visit. If for any reason you are refused follow-up, please contact the [facility] Emergency Department at and asked to speak to the emergency department charge nurse. [facility] Primary Care [address] [place] [address] [facility] [address] [place] [id number] 1. Labs were normal today. You are not 2. Cycles may be irregular for the first several months. 3. Tylenol and or ibuprofen as needed for pain management. 4. Follow-up with your primary care provider or OBGYN as we discussed. Return to the ED as needed and as discussed.
[2018-09-03 17:02] LABS: CHLORIDE,CL 100 mmol/L (98-107); SODIUM,NA 135 mmol/L (136-145)
== END 2018-09-03 17:14 | disposition home or self-care (01) ==
LOC: MW.ED 15:52
DX: N92.6 Irregular menstruation, unspecified (principal)
CPT/HCPCS: 36415; 80048; 81001; 81025; 85025; 99284

== ENCOUNTER 2019-01-28 19:54 | Emergency (ER) | payer SELFPAY ==
[2019-01-28] MEDS ORDERED: cefTRIAXone 1 GM in Lidocaine 1% 4 ML IM ONE (22:21)
--- NOTE | 2019-01-28 22:24 | EDM.PDOC ---
ED HPI GENERAL MEDICAL PROBLEM - General Chief Complaint: Genitourinary Problem Stated Complaint: FEVER/FLU SYMPTOMS Time Seen by Provider: 01/28/19 20:52 - History of Present Illness INITIAL COMMENTS - FREE TEXT/NARRATIVE: HISTORY AND PHYSICAL: History of present illness: Patient 24-year-old female presents with concern of frequency and discomfort with urination over the last 24-48 hours patient denies nausea vomiting vaginal bleeding irregular discharge or other concern Review of systems: As per history of present illness and below otherwise all systems reviewed and negative. Past medical history: As per history of present illness and as reviewed below otherwise noncontributory. Surgical history: As per history of present illness and as reviewed below otherwise noncontributory. Social history: No reported history of drug or alcohol abuse. Family history: As per history of present illness and as reviewed below otherwise noncontributory. Physical exam: HEENT: Atraumatic, normocephalic, pupils reactive, negative for conjunctival pallor or scleral icterus, mucous membranes moist, throat clear, neck supple, nontender, trachea midline. Lungs: Clear to auscultation, breath sounds equal bilaterally, chest nontender. Heart: S1S2, regular, negative for clicks, rubs, or JVD. Abdomen: Soft, nondistended, nontender. Negative for masses or hepatosplenomegaly. Mild left-sided costovertebral tenderness. Pelvis: Stable nontender. Genitourinary: Deferred. Rectal: Deferred. Extremities: Atraumatic, negative for cords or calf pain. Neurovascular unremarkable. Neuro: Awake, alert, oriented. Cranial nerves II through XII unremarkable. Cerebellum unremarkable. Motor and sensory unremarkable throughout. Exam nonfocal. Diagnostics: UA UCG Therapeutics: Rocephin 1 g IM Impression: #1 urinary tract infection Definitive disposition and diagnosis as appropriate pending reevaluation and review of above. [] flank/urinary Pain Score (Numeric/FACES): 10 - Related Data Allergies Allergy/AdvReac Type Severity Reaction Status Date / Time No Known Allergies Allergy Verified 01/28/19 20:01 Home Meds: Home Meds . 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 ED EXAM, GENERAL - Physical Exam Exam: See Below (dictation) Course - Vital Signs Last Recorded V/S: Last Vital Signs Temp 36.9 C 01/28/19 20:02 Pulse 113 H 01/28/19 20:02 Resp 14 01/28/19 20:02 BP 127/79 01/28/19 20:02 Pulse Ox 97 01/28/19 20:02 - Orders/Labs/Meds Orders: Active Orders 24 hr Category Date Time Status CULTURE URINE [RM] Stat Lab 01/28/19 21:31 Received Labs: Laboratory Tests 01/28/19 01/28/19 Range/Units 21:31 21:31 Urine Color YELLOW Urine Appearance CLOUDY Urine pH 6.0 (5.0-8.0) Ur Specific [place] 1.020 (1.001-1.035) Urine Protein 100 H (NEGATIVE) mg/dL Urine Glucose (UA) NEGATIVE (NEGATIVE) mg/dL Urine Ketones NEGATIVE (NEGATIVE) mg/dL Urine Occult Blood MODERATE H (NEGATIVE) Urine Nitrite POSITIVE H (NEGATIVE) Urine Bilirubin NEGATIVE (NEGATIVE) Urine Urobilinogen 0.2 (<2.0) EU/dL Ur Leukocyte Esterase LARGE H (NEGATIVE) Urine RBC NONE SEEN (0-2/HPF) Urine WBC >100 (0-5/HPF) Ur Epithelial Cells RARE (NONE-FEW) Urine Bacteria 2+ H (NEGATIVE) Urine Mucus LIGHT (NONE-MOD) Urine HCG, Qual NEGATIVE (NEGATIVE) Meds: Medications Discontinued Medications Generic Name Dose Route Start Last Admin Trade Name Freq PRN Reason Stop Dose Admin Ceftriaxone Sodium 1 gm/ 4 mls @ 4 mls/sec 01/28/19 22:21 Lidocaine HCl IM 01/28/19 22:22 ONETIME ONE Departure - Departure Time of Disposition: 22:24 Disposition: Home, Self-Care 01 Condition: Good Clinical Impression: UTI, Urinary tract infectious disease - Discharge Information Referrals: PCP,None [Primary Care Provider] - Additional Instructions: The following information is given to patients seen in the emergency department who are being discharged to home. This information is to outline your options for follow-up care. We provide all patients seen in our emergency department with a follow-up referral. The need for follow-up, as well as the timing and circumstances, are variable depending upon the specifics of your emergency department visit. If you don't have a primary care physician on staff, we will provide you with a referral. We always advise you to contact your personal physician following an emergency department visit to inform them of the circumstance of the visit and for follow-up with them and/or the need for any referrals to a consulting specialist. The emergency department will also refer you to a specialist when appropriate. This referral assures that you have the opportunity for followup care with a specialist. All of these measure are taken in an effort to provide you with optimal care, which includes your followup. Under all circumstances we always encourage you to contact your private physician who remains a resource for coordinating your care. When calling for followup care, please make the office aware that this follow-up is from your recent emergency room visit. If for any reason you are refused follow-up, please contact the [facility] emergency department at and asked to speak to the emergency department charge nurse. Keflex as prescribed Pyridium as prescribed push fluids follow-up primary medical doctor as discussed return as needed as discussed
== END 2019-01-28 22:54 | disposition home or self-care (01) ==
LOC: MW.ED 19:54
DX: N39.0 Urinary tract infection, site not specified (principal)
CPT/HCPCS: 81001; 81025; 87086; 87088; 87186; 96372; 99283; J0696; J2001; 99282